=== PATIENT | male | born 1995 | race African-American/Black ===

== ENCOUNTER 2020-12-20 18:55 | Emergency (ER) | payer OTHER, SELFPAY ==
[2020-12-20] MEDS ORDERED: Acetaminophen 500 MG TAB ONE (19:32)
[2020-12-21 17:07] LABS: SARS-CoV-2 PCR by NAA DETECTED (NotDetected)
== END 2020-12-20 20:55 | disposition home or self-care (01) ==
LOC: MADERS 18:55
DX: U07.1 COVID-19 (principal)
CPT/HCPCS: 71045; 93005; U0003; U0005